=== PATIENT | female | born 1985 | race African-American/Black ===

== ENCOUNTER 2016-10-16 19:43 | Emergency (ER) | payer MEDICAID ==
[~2016-10-16 19:43] MED LIST: ALBU2.5V13 NEB; METH10TA7 PO; OMEP20CA10 PO; PROP20TA PO
== END 2016-10-16 22:15 | disposition left against medical advice (07) ==
LOC: ER 19:43
DX: R06.02 Shortness of breath (principal); Z53.21 Procedure and treatment not carried out due to patient leaving prior to being seen by health care provider

== ENCOUNTER 2016-10-18 09:04 | Emergency (ER) | payer MEDICAID ==
[~2016-10-18] VITALS: Ht 172.7 cm; Wt 90.0 kg
[2016-10-18] MEDS ORDERED: VISCOUS LIDOCAINE 2% 15 ML UDC MM STA (10:16)
[2016-10-18] MEDS ORDERED: MAGNESIUM/ALUMINUM HYDROXIDE/SIMETHICONE 30ML UDC PO ONE (10:30)
[2016-10-18] MEDS ORDERED: KETOROLAC 60MG/2ML VIAL IM ONE (14:45)
[2016-10-18 14:55] VITALS: BP 103/64
== END 2016-10-18 15:00 | disposition home or self-care (01) ==
LOC: ER 10:37
DX: R07.89 Other chest pain (principal); M54.5 Low back pain; E05.00 Thyrotoxicosis with diffuse goiter without thyrotoxic crisis or storm; J45.909 Unspecified asthma, uncomplicated; E03.9 Hypothyroidism, unspecified; F17.200 Nicotine dependence, unspecified, uncomplicated
CPT/HCPCS: 71010; 81025; 93005; 96372; 99284; J1885

== ENCOUNTER 2017-06-14 15:31 | Emergency (ER) | payer MEDICAID ==
[~2017-06-14] VITALS: Ht 172.7 cm; Wt 98.0 kg
[2017-06-14 15:38] VITALS: BP 115/79
[2017-06-14] MEDS ORDERED: FLUORESCEIN SODIUM 1MG/STRIP LEFTEYE ONE (16:30)
[2017-06-14] MEDS ORDERED: TETRACAINE 0.5% OPHTH DROPS 4ML LEFTEYE ONE (16:30)
== END 2017-06-14 17:15 | disposition home or self-care (01) ==
LOC: ER 15:31
DX: H10.9 Unspecified conjunctivitis (principal); E05.90 Thyrotoxicosis, unspecified without thyrotoxic crisis or storm; J45.909 Unspecified asthma, uncomplicated; F17.200 Nicotine dependence, unspecified, uncomplicated
CPT/HCPCS: 99283

== ENCOUNTER 2017-07-05 22:50 | Emergency (ER) | payer MEDICAID ==
[~2017-07-05] VITALS: Ht 172.7 cm; Wt 96.5 kg
[2017-07-05] MEDS ORDERED: METO-539 PO (23:11)
[2017-07-06 00:05] VITALS: BP 114/81
[2017-07-06] MEDS ORDERED: IPRATROPIUM/ALBUTEROL 0.5-3(2.5)MG/3ML NEB HHN ONE (00:15)
== END 2017-07-06 02:04 | disposition home or self-care (01) ==
LOC: ER 22:50
DX: J06.9 Acute upper respiratory infection, unspecified (principal); E05.90 Thyrotoxicosis, unspecified without thyrotoxic crisis or storm; J45.909 Unspecified asthma, uncomplicated; F17.200 Nicotine dependence, unspecified, uncomplicated
CPT/HCPCS: 71045; 81025; 93005; 94640; 99284; J7620

== ENCOUNTER 2017-08-05 20:57 | Emergency (ER) | payer MEDICAID ==
[~2017-08-05] VITALS: Ht 172.7 cm; Wt 98.0 kg
[~2017-08-05 20:57] MED LIST changes: +METO-539 PO
[2017-08-05 21:31] VITALS: BP 129/78
== END 2017-08-06 | disposition left against medical advice (07) ==
LOC: ER 20:57
DX: Z53.21 Procedure and treatment not carried out due to patient leaving prior to being seen by health care provider (principal); J45.909 Unspecified asthma, uncomplicated; E05.90 Thyrotoxicosis, unspecified without thyrotoxic crisis or storm; F17.210 Nicotine dependence, cigarettes, uncomplicated
CPT/HCPCS: 93005

== ENCOUNTER 2018-03-14 15:21 | Emergency (ER) | payer MEDICAID ==
[~2018-03-14] VITALS: Ht 167.6 cm; Wt 100.0 kg
[~2018-03-14 15:21] MED LIST changes: +ALBU18HF2 IH; +ASPI-1159 PO; +CHOL200074 PO; +PRED5TAB48 PO; -PROP20TA PO; +PROP20TA19 PO
[2018-03-14 15:32] VITALS: BP 122/74
[2018-03-14] MEDS ORDERED: LIDOCAINE HCL 2%/EPINEPHRINE/PF 10 ML VIAL INFIL ONE (17:15)
== END 2018-03-14 18:49 | disposition home or self-care (01) ==
LOC: ER 15:21
DX: H60.8X3 Other otitis externa, bilateral (principal); Z91.018 Allergy to other foods
CPT/HCPCS: 99284; J3490

== ENCOUNTER 2018-04-11 06:50 | Emergency (ER) | payer MEDICAID ==
[~2018-04-11] VITALS: Ht 172.7 cm; Wt 99.0 kg
[2018-04-11 07:09] VITALS: BP 135/93
[2018-04-11] MEDS ORDERED: PHENAZOPYRIDINE HCL 100MG TABLET PO ONE (07:45)
[2018-04-11 08:27] LABS: CLARITY URINE TURBID (CLEAR); COLOR URINE ORANGE (YELLOW); KETONES URINE NEGATIVE (NEGATIVE); LEUKOCYTE ESTERASE URINE 3+ (NEGATIVE); NITRITE URINE NEGATIVE (NEGATIVE); OCCULT BLOOD URINE 3+ (NEGATIVE); PROTEIN URINE 2+ (NEGATIVE); SPECIFIC GRAVITY URINE 1.025 (1.005-1.030)
[2018-04-11] MEDS ORDERED: LIDOCAINE HCL/PF 1% 10 MG/ML 5ML VIAL IJ NR (11:57)
[2018-04-11] MEDS ORDERED: LIDOCAINE HCL/PF 1% 2ML VIAL INFIL ONE (12:00)
[2018-04-11] MEDS ORDERED: CEFTRIAXONE SODIUM 1 G/VIAL IM ONE (12:00)
== END 2018-04-11 12:22 | disposition home or self-care (01) ==
LOC: ER 08:03
DX: N39.0 Urinary tract infection, site not specified (principal); J45.909 Unspecified asthma, uncomplicated; E05.00 Thyrotoxicosis with diffuse goiter without thyrotoxic crisis or storm; R03.0 Elevated blood-pressure reading, without diagnosis of hypertension; Z91.018 Allergy to other foods
CPT/HCPCS: 81003; 87077; 87086; 87186; 96372; 99284; J0696; J3490

== ENCOUNTER 2018-08-25 12:02 | Emergency (ER) | payer MEDICAID ==
[~2018-08-25] VITALS: Ht 172.7 cm; Wt 91.0 kg
[2018-08-25 12:14] VITALS: BP 135/88
[2018-08-25] MEDS ORDERED: ALBUTEROL (0.083%) 2.5MG/3ML NEB HHN STA (13:36)
[2018-08-25] MEDS ORDERED: IPRATROPIUM BROMIDE (0.02%) 0.5MG/2.5ML NEB HHN STA (13:36)
[2018-08-25] MEDS ORDERED: PREDNISONE 20MG TABLET PO STA (13:36)
== END 2018-08-25 16:16 | disposition home or self-care (01) ==
LOC: ER 12:02
DX: R05 Cough (principal); J45.909 Unspecified asthma, uncomplicated; F17.200 Nicotine dependence, unspecified, uncomplicated; E05.90 Thyrotoxicosis, unspecified without thyrotoxic crisis or storm; Z79.82 Long term (current) use of aspirin; Z79.899 Other long term (current) drug therapy
CPT/HCPCS: 71045; 81025; 94640; 99283; J7512; J7611

== ENCOUNTER 2018-09-05 16:11 | Emergency (ER) | payer MEDICAID ==
[~2018-09-05] VITALS: Ht 172.7 cm; Wt 91.0 kg
[2018-09-05 20:14] LABS: CLARITY URINE CLEAR (CLEAR); COLOR URINE YELLOW (YELLOW); KETONES URINE NEGATIVE (NEGATIVE); LEUKOCYTE ESTERASE URINE NEGATIVE (NEGATIVE); NITRITE URINE NEGATIVE (NEGATIVE); OCCULT BLOOD URINE NEGATIVE (NEGATIVE); PROTEIN URINE NEGATIVE (NEGATIVE); SPECIFIC GRAVITY URINE 1.025 (1.005-1.030); UROBILINOGEN URINE 0.2 E.U./dL (0.2-1.0)
[2018-09-05 21:27] VITALS: BP 118/78
== END 2018-09-05 21:20 | disposition home or self-care (01) ==
LOC: ER 16:11
DX: B34.9 Viral infection, unspecified (principal)
CPT/HCPCS: 71045; 81025; 99284

== ENCOUNTER 2019-04-17 00:23 | Emergency (ER) | payer MEDICAID ==
[~2019-04-17] VITALS: Ht 172.7 cm; Wt 91.0 kg
[~2019-04-17 00:23] MED LIST changes: -ASPI-1159 PO; +ASPI-1393 PO; -OMEP20CA10 PO; +OMEP20CA5 PO
[2019-04-17] MEDS ORDERED: KETOROLAC 60MG/2ML VIAL IM STA (05:23)
[2019-04-17 05:37] LABS: BASOPHILS % 0.6 % (0.0-2.0); EOSINOPHILS % 1.2 % (0.0-5.0); HEMATOCRIT. 42.4 % (36.0-48.0); HEMOGLOBIN. 14.8 g/dL (12.0-16.0); LYMPHOCYTES % 33.8 % (20.0-50.0); MEAN CORPUSCULAR HEMOGLOBIN 30.5 pg (28.0-32.0); MEAN CORPUSCULAR VOLUME 87.4 fL (81.0-99.0); MEAN PLATELET VOLUME 9.1 fl (7.4-10.4); NEUTROPHILS % 58.4 % (40.0-76.0); PLATELET 298 x1000/uL (130-400); RED BLOOD CELL COUNT 4.84 mill/uL (4.2-5.4); RED CELL DISTRIBUTION WIDTH 13.6 % (11.6-14.6)
[2019-04-17 05:40] LABS: CLARITY URINE CLEAR (CLEAR); COLOR URINE YELLOW (YELLOW); KETONES URINE NEGATIVE (NEGATIVE); LEUKOCYTE ESTERASE URINE NEGATIVE (NEGATIVE); NITRITE URINE NEGATIVE (NEGATIVE); OCCULT BLOOD URINE NEGATIVE (NEGATIVE); PROTEIN URINE NEGATIVE (NEGATIVE); SPECIFIC GRAVITY URINE 1.029 (1.005-1.030)
[2019-04-17 05:41] LABS: CHLORIDE 103 mEq/L (98-107)
[2019-04-17 06:27] VITALS: BP 112/80
== END 2019-04-17 07:02 | disposition left against medical advice (07) ==
LOC: ER 00:23
DX: R51 Headache (principal); Z87.828 Personal history of other (healed) physical injury and trauma
CPT/HCPCS: 36415; 80053; 81003; 81025; 85025; 96372; 99283; J1885; Z7610

== ENCOUNTER 2019-08-08 20:36 | Emergency (ER) | payer MEDICAID ==
[~2019-08-08] VITALS: Ht 172.7 cm; Wt 98.0 kg
[~2019-08-08 20:36] MED LIST changes: -ASPI-1393 PO; +ASPI-1497 PO; +OMEP20CA14 PO; -OMEP20CA5 PO
[2019-08-08] MEDS ORDERED: SODIUM CHLORIDE 0.9% 1,000 ML IV ONE (22:08)
[2019-08-08] MEDS ORDERED: ONDANSETRON HCL 4MG/2ML INJ IV STA (22:08)
[2019-08-08 22:59] LABS: BASOPHILS % 0.5 % (0.0-2.0); EOSINOPHILS % 0.9 % (0.0-5.0); HEMATOCRIT. 37.6 % (36.0-48.0); HEMOGLOBIN. 12.7 g/dL (12.0-16.0); LYMPHOCYTES % 32.8 % (20.0-50.0); MEAN CORPUSCULAR HEMOGLOBIN 31.2 pg (28.0-32.0); MEAN CORPUSCULAR VOLUME 92.2 fL (81.0-99.0); MEAN PLATELET VOLUME 8.4 fl (7.4-10.4); MONOCYTES % 9.1 % (2.0-8.0); NEUTROPHILS % 56.7 % (40.0-76.0); PLATELET 260 x1000/uL (130-400); RED BLOOD CELL COUNT 4.07 mill/uL (4.2-5.4); RED CELL DISTRIBUTION WIDTH 16.4 % (11.6-14.6)
[2019-08-08] MEDS ORDERED: KETOROLAC 30MG/ML VIAL IV ONE (23:00)
[2019-08-08 23:06] LABS: CHLORIDE 107 mEq/L (98-107)
[2019-08-08 23:07] LABS: PROTHROMBIN TIME 10.3 sec (9.6-11.0)
[2019-08-08 23:15] LABS: T4 FREE 1.15 ng/dL (0.76-1.46)
[2019-08-08 23:37] LABS: CLARITY URINE CLEAR (CLEAR); COLOR URINE YELLOW (YELLOW); KETONES URINE NEGATIVE (NEGATIVE); LEUKOCYTE ESTERASE URINE NEGATIVE (NEGATIVE); NITRITE URINE NEGATIVE (NEGATIVE); OCCULT BLOOD URINE NEGATIVE (NEGATIVE); PH URINE 6.5 (4.5-8.0); PROTEIN URINE NEGATIVE (NEGATIVE); SPECIFIC GRAVITY URINE 1.035 (1.005-1.030)
[2019-08-09] VITALS: BP 103/54
[2019-08-09 00:40] LABS: *BENZODIAZEPINES SCREEN URINE NEGATIVE (NEGATIVE); *COCAINE SCREEN URINE NEGATIVE (NEGATIVE); METHADONE URINE SCREEN NEGATIVE (NEGATIVE); PHENCYCLIDINE URINE SCREEN NEGATIVE (NEGATIVE)
[2019-08-09 00:41] LABS: *AMPHETAMINES SCREEN URINE NEGATIVE (NEGATIVE); *BARBITURATES SCREEN URINE NEGATIVE (NEGATIVE); CANNABINOID URINE SCREEN NEGATIVE (NEGATIVE)
[2019-08-09 00:43] LABS: OPIATES URINE SCREEN PRESUMTIVE POSITIVE (NEGATIVE)
== END 2019-08-09 01:08 | disposition home or self-care (01) ==
LOC: ER 20:36
DX: R10.13 Epigastric pain (principal); R11.10 Vomiting, unspecified; J45.909 Unspecified asthma, uncomplicated; E05.90 Thyrotoxicosis, unspecified without thyrotoxic crisis or storm; Z79.82 Long term (current) use of aspirin; Z91.018 Allergy to other foods
CPT/HCPCS: 36415; 74021; 80053; 80305; 81003; 81025; 83690; 84439; 84443; 84484; 85025; 85610; 96361; 96374; 96375; 99284; J1885; J2405; J7030

== ENCOUNTER 2020-10-03 22:06 | Emergency (ER) | payer MEDICAID ==
[~2020-10-03] VITALS: Ht 175.3 cm; Wt 90.0 kg
[2020-10-03] MEDS ORDERED: LORAZEPAM 1MG TABLET PO ONE (22:45)
[2020-10-03 23:17] LABS: BASOPHILS % 1.4 % (0.0-2.0); EOSINOPHILS % 2.8 % (0.0-5.0); HEMOGLOBIN. 11.1 g/dL (12.0-16.0); LYMPHOCYTES % 38.9 % (20.0-50.0); MEAN CORPUSCULAR HEMOGLOBIN 29.2 pg (28.0-32.0); MEAN PLATELET VOLUME 8.7 fl (7.4-10.4); MONOCYTES % 6.2 % (2.0-8.0); NEUTROPHILS % 50.7 % (40.0-76.0); PLATELET 286 x1000/uL (130-400); RED BLOOD CELL COUNT 3.79 mill/uL (4.2-5.4); RED CELL DISTRIBUTION WIDTH 16.8 % (11.6-14.6)
[2020-10-03 23:19] LABS: CHLORIDE 109 mEq/L (98-107)
[2020-10-03 23:23] LABS: ETHANOL BLOOD < 10 mg/dL
[2020-10-03] MEDS ORDERED: ACETAMINOPHEN WITH CODEINE 300/30MG TABLET PO ONE (23:45)
[2020-10-04] MEDS ORDERED: KETOROLAC 15MG/ML VIAL IV ONE
[2020-10-04] MEDS ORDERED: IBUP-2029 MT (03:11)
[2020-10-04 03:51] VITALS: BP 125/84
== END 2020-10-04 04:22 | disposition home or self-care (01) ==
LOC: ER 22:06
DX: R07.89 Other chest pain (principal); M54.89 Other dorsalgia; R03.0 Elevated blood-pressure reading, without diagnosis of hypertension; J45.909 Unspecified asthma, uncomplicated; E05.90 Thyrotoxicosis, unspecified without thyrotoxic crisis or storm; Z91.018 Allergy to other foods
CPT/HCPCS: 36415; 71045; 80053; 80320; 83880; 84443; 84484; 85025; 93005; 99285; J1885; G0480

== ENCOUNTER 2024-04-18 15:38 | Emergency (ER) | payer MEDICAID ==
[~2024-04-18] VITALS: Ht 172.7 cm; Wt 81.6 kg
[~2024-04-18 15:38] MED LIST changes: +IBUP-2029 MT; +METH-372 PO; -METH10TA7 PO
[2024-04-18 15:45] VITALS: BP 114/69; PULSE 108; RESP 18; TEMP 97.9; O2SAT 100
[2024-04-18] MEDS ORDERED: FLUORESCEIN SODIUM 1MG/STRIP LEFTEYE ONE (19:00)
[2024-04-18] MEDS ORDERED: TETRACAINE 0.5% OPHTH DROPS 4ML LEFTEYE ONE (19:00)
== END 2024-04-18 21:06 | disposition home or self-care (01) ==
LOC: ER 15:38
DX: S05.02XA Injury of conjunctiva and corneal abrasion without foreign body, left eye, initial encounter (principal); Z88.7 Allergy status to serum and vaccine; W50.4XXA Accidental scratch by another person, initial encounter; Y93.89 Activity, other specified; Y92.89 Other specified places as the place of occurrence of the external cause; Y99.8 Other external cause status
CPT/HCPCS: 99281; 99283

== ENCOUNTER 2024-08-19 22:23 | Emergency (ER) | payer MEDICAID ==
[~2024-08-19] VITALS: Ht 172.7 cm; Wt 90.0 kg
[2024-08-19 22:35] VITALS: O2SAT 99
[2024-08-19] MEDS: KETOROLAC 30MG/ML VIAL IM ONE (23:15)
[2024-08-19] MEDS: HYDROCODONE/ACETAMINOPHEN 5/325MG TABLET PO ONE (23:15)
[2024-08-20] MEDS ORDERED: NAPR-1176 MT (01:24)
[2024-08-20] MEDS ORDERED: CYCL10TA21 MT (01:24)
[2024-08-20 01:52] VITALS: BP 137/86; PULSE 89; RESP 16; TEMP 36.7; O2SAT 99
== END 2024-08-20 01:55 | disposition home or self-care (01) ==
LOC: ER 22:23
DX: M25.552 Pain in left hip (principal); J45.909 Unspecified asthma, uncomplicated; G89.29 Other chronic pain; E05.90 Thyrotoxicosis, unspecified without thyrotoxic crisis or storm; Z79.899 Other long term (current) drug therapy; Z79.82 Long term (current) use of aspirin; Z79.1 Long term (current) use of non-steroidal anti-inflammatories (NSAID)
CPT/HCPCS: 81025; 96372; 99285; 72192; J1885; Z7610

== ENCOUNTER 2025-03-27 00:14 | Emergency (ER) | payer MEDICAID ==
[~2025-03-27] VITALS: Ht 172.7 cm; Wt 84.0 kg
[~2025-03-27 00:14] MED LIST changes: +CYCL10TA21 MT; +IBUP-1455 MT; -IBUP-2029 MT; +NAPR-1176 MT
[2025-03-27 00:16] VITALS: TEMP 37.3; O2SAT 100
[2025-03-27 00:53] VITALS: BP 141/75; PULSE 102; RESP 18
[2025-03-27] MEDS: METOCLOPRAMIDE HCL 10MG/2ML VIAL IM ONE (00:53)
[2025-03-27] MEDS: MORPHINE SULFATE 4 MG/ML INJ (FOR IV/IM USE) IM ONE (00:53)
[2025-03-27] MEDS ORDERED: NAPR-1176 MT (02:11)
[2025-03-27 02:47] LABS: CREATININE 0.7 mg/dL (0.6-1.0)
[2025-03-27 02:48] LABS: UREA NITROGEN BLOOD 6 mg/dL (9-23)
[2025-03-27 02:49] LABS: ASPARTATE AMINOTRANSFERASE 14 IU/L (<34); BILIRUBIN DIRECT 0.1 mg/dL (<=3.0)
[2025-03-27 02:50] LABS: BILIRUBIN TOTAL 0.4 mg/dL (0.1-1.0); PROTEIN TOTAL 7.6 g/dL (6.0-8.3)
[2025-03-27] MEDS: ACETAMINOPHEN 325MG TABLET PO ONE (02:55)
[2025-03-27 03:08] LABS: BASOPHILS % 0.5 % (0.0-2.0); EOSINOPHILS % 0.7 % (0.0-5.0); HEMATOCRIT. 32.6 % (36.0-48.0); HEMOGLOBIN. 10.6 g/dL (12.0-16.0); LYMPHOCYTES % 18.6 % (20.0-50.0); MEAN PLATELET VOLUME 8.1 fl (7.4-10.4); MONOCYTES % 8.4 % (2.0-8.0); NEUTROPHILS % 71.8 % (40.0-76.0); PLATELET 332 x1000/uL (130-400); RED BLOOD CELL COUNT 3.75 mill/uL (4.2-5.4); RED CELL DISTRIBUTION WIDTH 18.8 % (11.6-14.6)
[2025-03-27] MEDS ORDERED: ONDA4TAB50 MT (04:02)
== END 2025-03-27 04:48 | disposition home or self-care (01) ==
LOC: ER 00:14
DX: R51.9 Headache, unspecified (principal); R11.2 Nausea with vomiting, unspecified; Z79.1 Long term (current) use of non-steroidal anti-inflammatories (NSAID); Z79.82 Long term (current) use of aspirin; Z79.899 Other long term (current) drug therapy
CPT/HCPCS: 99285; 70450; 80076; 80048; 83690; 85025; 36415; 96372; J2765; J2270

== ENCOUNTER 2025-06-27 23:41 | Emergency (ER) | payer MEDICAID ==
[~2025-06-27] VITALS: Ht 172.7 cm; Wt 95.0 kg
[~2025-06-27 23:41] MED LIST changes: +ONDA4TAB50 MT
[2025-06-27 23:50] VITALS: TEMP 36.8
[2025-06-28] MEDS: PREDNISONE 20MG TABLET PO ONE (00:57)
[2025-06-28 01:57] VITALS: PULSE 86; RESP 18; O2SAT 97
[2025-06-28] MEDS: IPRATROPIUM/ALBUTEROL 0.5-3(2.5)MG/3ML NEB HHN ONE (01:57)
[2025-06-28] MEDS ORDERED: METH4TAB95 MT (02:20)
[2025-06-28 02:22] VITALS: BP 122/67; PULSE 83; RESP 16; O2SAT 100
[2025-06-28] MEDS ORDERED: ALBU18HF2 IH (02:39)
== END 2025-06-28 02:46 | disposition home or self-care (01) ==
LOC: ER 23:41
DX: J45.901 Unspecified asthma with (acute) exacerbation (principal); R05.9 Cough, unspecified; F17.210 Nicotine dependence, cigarettes, uncomplicated; Z79.82 Long term (current) use of aspirin; Z79.899 Other long term (current) drug therapy
CPT/HCPCS: 71045; 93005; 99283; 94640; J7512; Z7610 ×3; 94070